=== PATIENT | female | born 1985 | race Caucasian/White ===

== ENCOUNTER 2016-11-12 09:08 | Emergency (ER) | payer OTHER ==
[2016-11-12 09:14] VITALS: BP 137/98; PULSE 84; TEMP 98; BMI 30.2
[2016-11-12] MEDS ORDERED: ONDANSETRON 4 MG/2 ML VIAL IVPUSH ONE ×2 (09:17→11:41)
[2016-11-12] MEDS ORDERED: SODIUM CHLORIDE 1,000 ML IV STA (09:17)
--- NOTE | 2016-11-12 09:17 | PDOC ---
History of Present Illness - General Chief Complaint: Constipation Stated Complaint: CONSTIPATION Time Seen by Provider: 11/12/16 09:16 History Source: Patient, Old Records Exam Limitations: No Limitations - History of Present Illness Initial Comments: 11/12/16 09:33 31-year-old female with history of anorexia nervosa and depression presents to the emergency department from an eating disorder facility with complaints of abdominal pain and constipation. These symptoms have been going on for approximately one week now. The pain is described as epigastric radiating down to the suprapubic region and is cramping in nature. The pain is worsened when she eats and she is been having postprandial vomiting. She denies fevers and chills. She denies complaints. The patient was sent to [facility] on Saturday for a KUB which showed remarkable fecal retention throughout the colon but no obstruction. And had multiple fleets enemas and stool softeners with a bowel movement on Saturday; however she has not been passing gas since that time. Past History - Travel Traveled outside of the country in the last 30 days: No - Past Medical History Allergies/Adverse Reactions: Allergies Allergy/AdvReac Type Severity Reaction Status Date / Time carbamazepine [From Tegretol] Allergy Unknown Verified 11/12/16 09:16 Home Medications: Ambulatory Orders NK [No Known Home Medication] 11/12/16 Other medical history: PT DENIES - Psycho/Social/Smoking Cessation Hx Anxiety: No Suicidal Ideation: No Smoking History: Never smoked Have you smoked in the past 12 months: No Information on smoking cessation initiated: No Hx Alcohol Use: No Drug/Substance Use Hx: No Substance Use Type: None Review of Systems - Review of Systems Able to Perform ROS?: Yes Is the patient limited Bahamian proficient: No Constitutional: No: Symptoms Reported HEENTM: No: Symptoms Reported Respiratory: No: Symptoms reported Cardiac (ROS): No: Symptoms Reported ABD/GI: Yes: See HPI : No: Symptoms Reported Musculoskeletal: No: Symptoms Reported Integumentary: No: Symptoms Reported Neurological: No: Symptoms reported *Physical Exam - Vital Signs Last Vital Signs Temp Pulse Resp BP Pulse Ox 98 F 84 18 137/98 98 11/12/16 09:09 11/12/16 09:09 11/12/16 09:09 11/12/16 09:09 11/12/16 09:09 - Physical Exam Comments: 11/12/16 09:35 GENERAL: Thin appearing. Awake and alert. No acute distress. HEENT: Normocephalic, atraumatic. PERRLA, EOMI. No conjunctival pallor. Sclera are non- icteric. Moist mucous membranes. Oropharynx is clear. NECK: Supple. Full ROM. No JVD. No lymphadenopathy. CARDIOVASCULAR: Regular rate and rhythm. No murmurs, rubs, or gallops. Distal pulses are 2+ and symmetric. PULMONARY: No evidence of respiratory distress. Lungs clear to auscultation bilaterally. No wheezing, rales or rhonchi. ABDOMINAL: Soft with diffuse tenderness. Non-distended. No rebound or guarding. No organomegaly. Normoactive bowel sounds. MUSCULOSKELETAL Normal range of motion at all joints. No bony deformities or tenderness. No CVA tenderness. EXTREMITIES: No cyanosis. No clubbing. No edema. No calf tenderness. SKIN: Warm and dry. Normal capillary refill. No rashes. No jaundice. NEUROLOGICAL: Alert, awake, appropriate. Cranial nerves 2-12 intact. Grossly non-focal exam. PSYCHIATRIC: Cooperative. Good eye contact. Appropriate mood and affect. ED Treatment Course - LABORATORY CBC & Chemistry Diagram: 11/12/16 09:45 11/12/16 09:45 Medical Decision Making - Medical Decision Making 11/12/16 09:36 31-year-old female with anorexia who presents to the emergency department with nausea, vomiting, abdominal pain and constipation. Differential diagnosis includes but is not limited to: Fecal impaction, bowel obstruction, volvulus, dehydration, electrolyte abnormality, toxic/metabolic derangement. Plan: 1. Labs 2. Urine analysis and urine 3. IV fluids for hydration 4. Antiemetics 5. Observe and reevaluate 6. If her symptoms do not resolve I will consider doing a CT scan of the abdomen and pelvis to rule out the above-mentioned abdominal pathology 11/12/16 12:10 Addendum: The labs were reviewed and are noted in the EMR. CT scan of the abdomen and pelvis shows fecal impaction and may be an ileus but no acute intra- abdominal process. I have reevaluated the patient at this time and she is feeling improved. She is tolerated apple juice without nausea and vomiting. I' ve discussed her case with the nurse practitioner, Radha Mane. The plan is to discharge the patient back to her facility. Increase the amount of dietary fiber and hydration. Return to the emergency department if symptoms persist, worsen, or new symptoms arise. *DC/Admit/Observation/Transfer Diagnosis at time of Disposition: Diffuse abdominal pain, Nausea and vomiting, Constipation - Discharge Dispostion Disposition: HOME Condition at time of disposition: Stable Admit: No - Patient Instructions Printed Discharge Instructions: DI for Constipation Additional Instructions: Continue the high-fiber diet as prescribed. Hydration with water limited in moderation as prescribed. Return to the emergency department if your symptoms persist, worsen, or new symptoms arise.
[2016-11-12] MEDS ORDERED: ONDANSETRON 4 MG/2 ML VIAL ONE ×2 (09:32→12:01)
[2016-11-12 09:46] LABS: URINE APPEARANCE Clear; URINE BILIRUBIN Negative (NEGATIVE); URINE BLOOD Negative (NEGATIVE); URINE GLUCOSE (UA) Negative (NEGATIVE); URINE KETONE Negative (NEGATIVE); URINE LEUK ESTERASE Negative (NEGATIVE); URINE NITRITE Negative (NEGATIVE); URINE PROTEIN Negative (NEGATIVE); URINE UROBILINOGEN 0.2 E.U/dl (0.2-1.0)
[2016-11-12 09:47] LABS: URINE COLOR YELLOW
[2016-11-12 10:02] LABS: BASOPHIL 0.8 % (0-2.0); EOSINOPHIL 0.6 % (0-4.5); MCH 29.9 pg (25.7-33.7); MCHC 34.1 g/dl (32.0-36.0); MEAN CELL VOLUME 87.6 fl (80-96); MEAN PLT VOLUME 7.2 fl (7.5-11.1); NEUTROPHILS 68.5 % (42.8-82.8); PLATELET COUNT 403 K/MM3 (134-434); RDW 11.9 % (11.6-15.6); WHITE BLOOD COUNT 5.1 K/mm3 (4.0-10.0)
[2016-11-12 10:17] LABS: ALBUMIN 4.4 g/dl (3.5-5.0); ALK PHOS 40 U/L (32-92); ANION GAP 6 (8-16); BILIRUBIN,TOTAL 0.8 mg/dl (0.2-1.0); CALCIUM 9.4 mg/dl (8.4-10.2); CO2 27 mmol/L (22-28); CREATININE 0.5 mg/dl (0.6-1.3); GLUCOSE,RANDOM 91 mg/dl (74-106); SGOT/AST 19 U/L (10-42); SGPT/ALT 16 U/L (10-40); TOT PROT 7.3 g/dl (6.4-8.3)
== END 2016-11-12 12:39 | disposition home or self-care (01) ==
LOC: FER 09:08
PROC: 3E033GC Introduction of Other Therapeutic Substance into Peripheral Vein, Percutaneous Approach (ICD-10-PCS; principal; 2016-11-12)
PROC: 3E0337Z Introduction of Electrolytic and Water Balance Substance into Peripheral Vein, Percutaneous Approach (ICD-10-PCS; 2016-11-12)
DX: K59.00 Constipation, unspecified (principal); R11.2 Nausea with vomiting, unspecified; R10.84 Generalized abdominal pain; F50.00 Anorexia nervosa, unspecified; F32.9 Major depressive disorder, single episode, unspecified
CPT/HCPCS: 36415; 74177-TC; 80053; 81003; 83690; 84703; 85025; 99283-25